=== PATIENT | female | born 1950 | race Caucasian/White ===

== ENCOUNTER 2020-12-30 21:34 | Emergency (ER) | payer SELFPAY ==
[2020-12-31 02:35] LABS: BASOPHIL 0.6 % (0-2); EOSINOPHIL 4.8 % (0-7); HCT 41.6 % (37.0-47.0); HGB 14.1 g/dl (12.5-16.0); LYMPHOCYTE 27.8 % (15-48); MCH 31.1 pg (25.0-31.0); MCHC 33.9 g/dL (32.0-36.0); MCV 91.8 fL (78.0-100.0); MONOCYTE 7.8 % (0-12); NEUTROPHIL 58.8 % (41-80); NRBC 0; PLT 208 K/uL (150-400); RBC 4.53 M/uL (4.20-5.40); RDW 13.4 % (11.5-14.0); WBC 8.1 K/uL (4.0-10.5)
[2020-12-31 02:52] LABS: ALBUMIN 3.7 g/dL (3.4-5.0); BILIRUBIN - TOTAL 0.4 mg/dL (0.2-1.0); BUN/CREAT RATIO (CALC) 23.4 RATIO; CREATININE 0.77 mg/dL (0.51-0.95); FT4 (FREE T4) 0.4 ng/dL (0.76-1.46); GLOBULIN (CALCULATION) 3.4 g/dL; TOTAL PROTEIN 7.1 g/dL (6.4-8.2)
[2020-12-31] MEDS ORDERED: LEVOTHYROXINE100 MC2 PO (03:36)
== END 2020-12-31 03:53 | disposition home or self-care (01) ==
LOC: FER 21:34
PROVIDERS: Emergency Medicine
DX: E03.9 Hypothyroidism, unspecified (principal); Z79.899 Other long term (current) drug therapy
CPT/HCPCS: 36415; 80053; 84439; 84443; 85025; 99282

== ENCOUNTER 2021-07-25 08:20 | Emergency (ER) | payer MEDICARE ==
[~2021-07-25 08:20] MED LIST: LEVOTHYROXINE100 MC2 PO
[2021-07-25 09:42] LABS: BASOPHIL 0.7 % (0-2); EOSINOPHIL 4.1 % (0-7); HCT 43.8 % (37.0-47.0); HGB 14.6 g/dl (12.5-16.0); MCH 31.1 pg (25.0-31.0); MCHC 33.3 g/dL (32.0-36.0); MCV 93.4 fL (78.0-100.0); MONOCYTE 7.3 % (0-12); NEUTROPHIL 70.5 % (41-80); NRBC 0; PLT 197 K/uL (150-400); RBC 4.69 M/uL (4.20-5.40); RDW 12.4 % (11.5-14.0); WBC 8.1 K/uL (4.0-10.5)
[2021-07-25 10:03] LABS: BUN/CREAT RATIO (CALC) 20.8 RATIO; CREATININE 0.77 mg/dL (0.51-0.95); POTASSIUM 3.9 mmol/L (3.5-5.1)
[2021-07-25 10:29] LABS: BILIRUBIN NEGATIVE (NEGATIVE); BLOOD 2+ Ery/uL (NEGATIVE); CLARITY CLEAR (CLEAR); COLOR YELLOW (YELLOW); GLUCOSE (U) NORMAL (NORMAL); LEUKOCYTES 3+ Leu/uL (NEGATIVE); NITRITE NEGATIVE (NEGATIVE); PROTEIN NEGATIVE (NEGATIVE); UROBILINOGEN 0.2 mg/dL (0.2-1.0)
[2021-07-25 10:41] LABS: BACTERIA TRACE
[2021-07-25] MEDS ORDERED: MACROBID100 MG PO (11:05)
== END 2021-07-25 11:31 | disposition home or self-care (01) ==
LOC: FER 08:20
PROVIDERS: Emergency Medicine
DX: S30.0XXA Contusion of lower back and pelvis, initial encounter (principal); N39.0 Urinary tract infection, site not specified; W19.XXXA Unspecified fall, initial encounter; Y92.009 Unspecified place in unspecified non-institutional (private) residence as the place of occurrence of the external cause
CPT/HCPCS: 36415; 70450; 71045; 72100; 72170; 80048; 81001; 84484; 85025; 87088; 93005

== ENCOUNTER 2021-09-23 08:28 | Emergency (ER) | payer MEDICARE ==
[~2021-09-23 08:28] MED LIST changes: +MACROBID100 MG PO
[2021-09-23 10:40] LABS: BILIRUBIN NEGATIVE (NEGATIVE); BLOOD NEGATIVE Ery/uL (NEGATIVE); CLARITY CLEAR (CLEAR); COLOR YELLOW (YELLOW); GLUCOSE (U) NORMAL (NORMAL); LEUKOCYTES NEGATIVE Leu/uL (NEGATIVE); NITRITE NEGATIVE (NEGATIVE); PROTEIN NEGATIVE (NEGATIVE); SPECIFIC GRAVITY >=1.030 (1.001-1.030); UROBILINOGEN 0.2 mg/dL (0.2-1.0)
[2021-09-23 10:40] LABS: BASOPHIL 0.5 % (0-2); EOSINOPHIL 3.2 % (0-7); HCT 42.6 % (37.0-47.0); HGB 14.3 g/dl (12.5-16.0); LYMPHOCYTE 15.5 % (15-48); MCH 31.5 pg (25.0-31.0); MCHC 33.6 g/dL (32.0-36.0); MCV 93.8 fL (78.0-100.0); MPV 10.3 fL (6.0-9.5); NEUTROPHIL 74.2 % (41-80); NRBC 0; PLT 205 K/uL (150-400); RBC 4.54 M/uL (4.20-5.40); RDW 12.8 % (11.5-14.0); WBC 8.3 K/uL (4.0-10.5)
[2021-09-23 11:40] LABS: ALBUMIN 3.9 g/dL (3.4-5.0); BILIRUBIN - TOTAL 0.4 mg/dL (0.2-1.0); BUN/CREAT RATIO (CALC) 15.9 RATIO; CREATININE 0.88 mg/dL (0.51-0.95); GLOBULIN (CALCULATION) 3.3 g/dL; POTASSIUM 3.8 mmol/L (3.5-5.1); TOTAL PROTEIN 7.2 g/dL (6.4-8.2)
== END 2021-09-23 17:40 | disposition home or self-care (01) ==
LOC: FER 08:28
PROVIDERS: Emergency Medicine
DX: S09.90XA Unspecified injury of head, initial encounter (principal); S39.012A Strain of muscle, fascia and tendon of lower back, initial encounter; F32.A Depression, unspecified; W19.XXXA Unspecified fall, initial encounter; Y92.009 Unspecified place in unspecified non-institutional (private) residence as the place of occurrence of the external cause
CPT/HCPCS: 36415; 70450; 72125; 72128; 72131; 80053; 81003; 84443; 84484; 85025; 93005